=== PATIENT | male | born 1960 | race African-American/Black ===

== ENCOUNTER 2021-10-14 17:24 | Inpatient (IN) | payer OTHER ==
[~2021-10-14] VITALS: Ht 177.8 cm; Wt 100.4 kg
[2021-10-14 18:02] LABS: BASOPHIL 0.2 % (0-2); EOSINOPHIL 0 % (0-5); HCT 24.5 % (42.0-52.0); LYMPHOCYTE 13.9 % (15-48); MCH 14.4 pg (25.0-31.0); MCHC 24.1 g/dL (32.0-36.0); MCV 59.8 fL (78.0-100.0); MONOCYTE 10.9 % (0-12); MPV 9.2 fL (6.0-9.5); NEUTROPHIL 74.3 % (41-80); NRBC 0.7; PLT 628 K/uL (150-400); RDW 21.9 % (11.5-14.0); WBC 13.7 K/uL (4.0-10.5)
[2021-10-14 18:06] LABS: INR 1.1 (0.9-1.2); PROTHROMBIN TIME 13.6 SECONDS (11.8-13.4); PTT 26.3 SECONDS (24.4-34.7)
[2021-10-14 18:12] LABS: ALBUMIN 3.3 g/dL (3.4-5.0); BILIRUBIN - TOTAL 0.3 mg/dL (0.2-1.0); BUN/CREAT RATIO (CALC) 18.6 RATIO; CREATININE 1.02 mg/dL (0.67-1.17); GLOBULIN (CALCULATION) 4.2 g/dL; POTASSIUM 4.2 mmol/L (3.5-5.1); TOTAL PROTEIN 7.5 g/dL (6.4-8.2)
[2021-10-14 18:35] LABS: HGB 5.9 g/dl (13.2-18.0)
[2021-10-14 20:26] LABS: RETICULOCYTE COUNT 2.1 % (1.0-2.0)
[2021-10-15 00:44] LABS: BILIRUBIN NEGATIVE (NEGATIVE); BLOOD NEGATIVE Ery/uL (NEGATIVE); CLARITY CLEAR (CLEAR); COLOR YELLOW (YELLOW); GLUCOSE (U) NORMAL (NORMAL); LEUKOCYTES NEGATIVE Leu/uL (NEGATIVE); NITRITE NEGATIVE (NEGATIVE); PROTEIN NEGATIVE (NEGATIVE); UROBILINOGEN 0.2 mg/dL (0.2-1.0); pH 6.5 (5.0-9.0)
[2021-10-15 04:14] LABS: HCT 29.2 % (42.0-52.0); HGB 7.7 g/dL (13.2-18.0)
[2021-10-15 07:05] LABS: IRON % SATURATION 3.4 %SAT (20-50)
[2021-10-15] MEDS ORDERED: PRINIVIL20 MG PO (09:15)
[2021-10-16 06:40] LABS: BASOPHIL 0.7 % (0-2); EOSINOPHIL 4.9 % (0-5); HCT 29.5 % (42.0-52.0); MCH 16.9 pg (25.0-31.0); MCHC 26.8 g/dL (32.0-36.0); MCV 63.2 fL (78.0-100.0); MONOCYTE 14.3 % (0-12); NEUTROPHIL 50.5 % (41-80); PLT 525 K/uL (150-400); RBC 4.67 M/uL (4.70-6.00); RDW 26.9 % (11.5-14.0); WBC 9.7 K/uL (4.0-10.5)
[2021-10-16 06:53] LABS: BUN/CREAT RATIO (CALC) 12.4 RATIO; CREATININE 0.97 mg/dL (0.67-1.17); POTASSIUM 3.9 mmol/L (3.5-5.1)
[2021-10-16 07:08] LABS: HGB 7.9 g/dl (13.2-18.0)
[2021-10-17 06:45] LABS: BASOPHIL 0.7 % (0-2); EOSINOPHIL 4.3 % (0-5); HCT 31.7 % (42.0-52.0); HGB 8.2 g/dl (13.2-18.0); LYMPHOCYTE 30.2 % (15-48); MCH 16.8 pg (25.0-31.0); MCHC 25.9 g/dL (32.0-36.0); MCV 64.8 fL (78.0-100.0); MONOCYTE 14.6 % (0-12); MPV 8.6 fL (6.0-9.5); NEUTROPHIL 49.2 % (41-80); PLT 483 K/uL (150-400); RBC 4.89 M/uL (4.70-6.00); RDW 27.5 % (11.5-14.0); WBC 11.5 K/uL (4.0-10.5)
[2021-10-17 07:11] LABS: BUN/CREAT RATIO (CALC) 14.3 RATIO; CREATININE 0.98 mg/dL (0.67-1.17); POTASSIUM 4.2 mmol/L (3.5-5.1)
[2021-10-18 06:15] LABS: BASOPHIL 0.6 % (0-2); EOSINOPHIL 4.3 % (0-5); HCT 33.4 % (42.0-52.0); HGB 8.7 g/dl (13.2-18.0); LYMPHOCYTE 29.3 % (15-48); MCH 16.9 pg (25.0-31.0); MONOCYTE 11.8 % (0-12); NEUTROPHIL 52.6 % (41-80); NRBC 0.4; PLT 525 K/uL (150-400); RBC 5.14 M/uL (4.70-6.00); RDW 28.7 % (11.5-14.0); WBC 11.1 K/uL (4.0-10.5)
[2021-10-18 06:24] LABS: BUN/CREAT RATIO (CALC) 10.7 RATIO; CREATININE 1.03 mg/dL (0.67-1.17)
--- NOTE | 2021-10-18 16:07 | NUR ---
10/18/21 Mr. Cavazos lives at home with his S.o. He is independent in the home and community. No discharge planning needs are anticipated.
== END 2021-10-18 16:20 | disposition home or self-care (01) | DRG 375 ==
LOC: FER 17:24 → FMS 10-15 05:34
PROVIDERS: Emergency Medicine; Internal Medicine; Nurse Practitioner; Student in an Organized Health Care Education/Training Program; ADMIT Internal Medicine
PROC: 30233N1 Transfusion of Nonautologous Red Blood Cells into Peripheral Vein, Percutaneous Approach (ICD-10-PCS; principal; 2021-10-14)
PROC: 30233N1 Transfusion of Nonautologous Red Blood Cells into Peripheral Vein, Percutaneous Approach (ICD-10-PCS; 2021-10-15)
PROC: 0DBH8ZX Excision of Cecum, Via Natural or Artificial Opening Endoscopic, Diagnostic (ICD-10-PCS; 2021-10-18 11:00)
PROC: 0DBE8ZZ Excision of Large Intestine, Via Natural or Artificial Opening Endoscopic (ICD-10-PCS; 2021-10-18 11:00)
DX: C18.0 Malignant neoplasm of cecum (principal); K92.2 Gastrointestinal hemorrhage, unspecified; K63.5 Polyp of colon; Z20.822 Contact with and (suspected) exposure to COVID-19; K57.30 Diverticulosis of large intestine without perforation or abscess without bleeding; I10 Essential (primary) hypertension; D63.0 Anemia in neoplastic disease; D50.9 Iron deficiency anemia, unspecified; Z87.442 Personal history of urinary calculi; Z98.890 Other specified postprocedural states; Z83.3 Family history of diabetes mellitus; Z82.49 Family history of ischemic heart disease and other diseases of the circulatory system; Z80.42 Family history of malignant neoplasm of prostate; Z79.899 Other long term (current) drug therapy
CPT/HCPCS: 36415; 36430; 71250; 80048; 80053; 81003; 82378; 82728; 83540; 83550; 84484; 85014; 85018; 85025; 85610; 85730; 86850; 86900; 86901; 86922; J2704; J2916; J7050; J7120; P9016; Q9967; U0002

== ENCOUNTER 2021-10-26 09:49 | Inpatient (IN) | payer OTHER | END 2021-10-30 16:45 | disposition home or self-care (01) | DRG 330 | LOC: FAS 09:49 → FMS 15:50 → FAS 17:03 → FMS 17:04 → FTCU 10-28 19:16 | PROVIDERS: ADMIT Allergy & Immunology Allergy | PROC: 0DBF0ZZ Excision of Right Large Intestine, Open Approach (ICD-10-PCS; 2021-10-26) | PROC: 0WJG4ZZ Inspection of Peritoneal Cavity, Percutaneous Endoscopic Approach (ICD-10-PCS; 2021-10-26) | PROC: 30233N1 Transfusion of Nonautologous Red Blood Cells into Peripheral Vein, Percutaneous Approach (ICD-10-PCS; principal; 2021-10-27) | PROC: 05HY33Z Insertion of Infusion Device into Upper Vein, Percutaneous Approach (ICD-10-PCS; 2021-10-28) | PROC: 0W9G3ZX Drainage of Peritoneal Cavity, Percutaneous Approach, Diagnostic (ICD-10-PCS; 2021-10-29) | DX: C18.0 Malignant neoplasm of cecum (principal); N17.9 Acute kidney failure, unspecified; J98.11 Atelectasis; J90 Pleural effusion, not elsewhere classified; R18.8 Other ascites; I31.3 Pericardial effusion (noninflammatory); D64.9 Anemia, unspecified; Z20.822 Contact with and (suspected) exposure to COVID-19; K66.8 Other specified disorders of peritoneum; E87.70 Fluid overload, unspecified; R00.0 Tachycardia, unspecified; K91.0 Vomiting following gastrointestinal surgery; D72.829 Elevated white blood cell count, unspecified; I11.9 Hypertensive heart disease without heart failure; K64.8 Other hemorrhoids; Z80.42 Family history of malignant neoplasm of prostate; Z83.3 Family history of diabetes mellitus; Z82.49 Family history of ischemic heart disease and other diseases of the circulatory system ==